=== PATIENT | female | born 1940 | race Caucasian/White ===

== ENCOUNTER → 2016-08-05 | Outpatient (CLI) | payer OTHER ==
--- NOTE | 2016-08-05 15:11 | MA ---
Screening Digital Mammogram With iCAD Analysis Clinical Indications: Routine screening. Technique: Standard cephalocaudal and mediolateral oblique projections were obtained. This examinatio n was processed by the iCAD computer aided detection system. Comparison: July 2015, July 2014, July 2013, July 2012, July 2011, July 2010, Decem 2008. Breast density: Type B; Scattered fibroglandular densities. Findings: CAD was reviewed. No masses, suspicious calcifications or other signs of malignancy are id entified. There has been no significant change in the appearance of either breast. Impression: Negative mammogram. BI-RADS 1. Recommendation: Routine mammographic screening in one year. [facility] will send a result letter to the patient. Negative mammography should not preclude additional workup of a clinically suspicious finding. The patient's information is entered into a reminder system with a target due date for her next mammo gram.
== END ==
LOC: FIMAGING 10:38
DX: Z12.31 Encounter for screening mammogram for malignant neoplasm of breast (principal)
CPT/HCPCS: G0202

== ENCOUNTER → 2017-06-02 | Outpatient (CLI) | payer OTHER | LOC: BMCIMAGING 11:59 | PROVIDERS: ATTEND Internal Medicine Rheumatology | DX: M16.12 Unilateral primary osteoarthritis, left hip (principal); M51.36 Other intervertebral disc degeneration, lumbar region ==

== ENCOUNTER → 2017-07-30 | Outpatient (CLI) | payer OTHER, MEDICARE ==
[~2017-07-30] MED LIST: DEPO METHYLPREDNISOLONE 40 MG/ML SDV ONE; DEPO METHYLPREDNISOLONE 80 MG/ML SDV ONE; IOPAMIDOL (ISOVUE 370) 100 ML BTL IV ONE; LIDOCAINE 1% 300 MG/30 ML SDV ONE; ROPIVACAINE HCL 150 MG/30 ML INJ ONE
== END ==
LOC: FIMAGING 09:20
PROVIDERS: ATTEND Orthopaedic Surgery Sports Medicine
DX: M16.12 Unilateral primary osteoarthritis, left hip (principal)
CPT/HCPCS: 20610; J1040; J2795; Q9967; J1030

== ENCOUNTER → 2017-08-18 | Outpatient (CLI) | payer OTHER, MEDICARE | LOC: FIMAGING 10:36 | PROVIDERS: ATTEND Internal Medicine | DX: Z12.31 Encounter for screening mammogram for malignant neoplasm of breast (principal) ==

== ENCOUNTER → 2017-10-29 | Outpatient (CLI) | payer OTHER, MEDICARE | LOC: BHLMT 14:00 | PROVIDERS: ATTEND Internal Medicine Cardiovascular Disease | DX: I25.10 Atherosclerotic heart disease of native coronary artery without angina pectoris (principal); I10 Essential (primary) hypertension | CPT/HCPCS: 93306-PO ==

== ENCOUNTER → 2017-11-02 | Outpatient (CLI) | payer OTHER, MEDICARE | LOC: BHFA 09:00 | PROVIDERS: ATTEND Internal Medicine Cardiovascular Disease | DX: Z01.810 Encounter for preprocedural cardiovascular examination (principal); I25.10 Atherosclerotic heart disease of native coronary artery without angina pectoris | CPT/HCPCS: 78452; 93017; A9500; J2785 ==

== ENCOUNTER 2017-11-18 06:00 | Inpatient (IN) | payer OTHER, MEDICARE ==
[~2017-11-18 06:00] MED LIST changes: -DEPO METHYLPREDNISOLONE 40 MG/ML SDV ONE; -DEPO METHYLPREDNISOLONE 80 MG/ML SDV ONE; -IOPAMIDOL (ISOVUE 370) 100 ML BTL IV ONE; -LIDOCAINE 1% 300 MG/30 ML SDV ONE; +ROPIVACAINE 0.2% 80 MG, EPINEPHrine 0.2 MG, morphINE 10 MG in SYRINGE 0 ML IU ONE; -ROPIVACAINE HCL 150 MG/30 ML INJ ONE; +TRANEXAMIC ACID 1,000 MG in NS 100 ML IV ONE
[2017-11-18] MEDS ORDERED: FAMOTIDINE 20 MG TAB PO ONE (06:22)
[2017-11-18] MEDS ORDERED: DEXAMETHASONE 4 MG/ML VIAL IVP ONE (06:22)
[2017-11-18] MEDS ORDERED: ceFAZolin 2 GM/SWFI 2 GM/20 ML SYR IVP ONE (06:22)
[2017-11-18] MEDS ORDERED: ACETAMINOPHEN 325 MG TAB PO ONE (06:22)
[2017-11-18] MEDS ORDERED: LIDOCAINE 1% 2 ML INJ ID PRN (06:23)
[2017-11-18] MEDS ORDERED: LR 1,000 ML IV ONE (06:23)
--- NOTE | 2017-11-18 06:58 | PDANEPAE ---
ANE History of Present Illness Hip OA ANE Past Medical History - Cardiovascular History Hx Hypertension: Yes Hx Arrhythmias: No Hx Chest Pain: No Hx Coronary Artery / Peripheral Vascular Disease: Yes Hx CHF / Valvular Disease: No Cardiovascular History Comment: [address] a few years ago - Pulmonary History Hx COPD: Yes Hx Asthma/Reactive Airway Disease: Yes Hx Recent Upper Respiratory Infection: No Hx Oxygen in Use at Home: No Hx Sleep Apnea: Yes Sleep Apnea Screening Result - Last Documented: Positive Pulmonary History Comment: exercise induced asthma - Neurologic History Hx Cerebrovascular Accident: No Hx Seizures: No Hx Dementia: No - Endocrine History Hx Diabetes: No - Renal History Hx Renal Disorders: No - Liver History Hx Hepatic Disorders: No - Neurological & Psychiatric Hx Hx Neurological and Psychiatric Disorders: No Neurological / Psychiatric History Comment: neuropathy - Cancer History Hx Cancer: No - Congenital Disorder History Hx Congenital Disorders: No - GI History Hx Gastrointestinal Disorders: Yes Gastrointestinal History Comment: reflux,hiatel hernia - Other Health History Other Health History: deaf right ear - Chronic Pain History Chronic Pain: Yes (left leg throbes at night) - Surgical History Prior Surgeries: Colonoscopy ANE Review of Systems Review of Systems: - Exercise capacity METS (RN): 4 METS ANE Patient History - Allergies Allergies/Adverse Reactions: naproxen [From Aleve] Allergy (Severe, Verified 10/15/17 11:39) LIPS GO NUMB prochlorperazine edisylate [From Compazine] Allergy (Intermediate, Verified 06/22 11:39) Other-Enter Comments prochlorperazine maleate [From Compazine] Allergy (Intermediate, Verified 11:39) Other-Enter Comments Sulfa (Sulfonamide Antibiotics) Allergy (Intermediate, Verified 10/15/17 11:39) Fever latex Allergy (Mild, Verified 10/15/17 11:39) Itching metronidazole Allergy (Mild, Verified 10/15/17 11:39) Itching - Home Medications Home Medications: Ascorbic Acid [Vitamin C 500 mg (*)] 1,000 mg PO DAILY 10/08/17 [Last Taken 05/23] Aspirin [Aspirin 81mg (*)] 81 mg PO DAILY 10/08/17 [Last Taken 11/11/17] Atorvastatin Calcium [Lipitor 40 mg (*)] 40 mg PO DAILY 10/08/17 [Last Taken ] Calcium Carb W/Vit D [Calcium Carb W/Vit D 500/200 (*)] 500 mg PO DAILY [Last Taken 11/16/17] Cholecalciferol Vit D3 [Vitamin D3 2000 units tab (OTC)] 2,000 units PO DAILY [Last Taken 11/13/17] Cyanocobalamin [Vitamin B12 (*)] 1,000 mcg PO DAILY 10/08/17 [Last Taken ] Ferrous Sulfate [Ferrous Sulf 325 MG (*)] 325 mg PO HS 10/08/17 [Last Taken 03/23] Furosemide [Lasix 20 MG (*)] 20 mg PO DAILY 10/08/17 [Last Taken 11/17/17] Hydrocodone/Acetaminophen [Keene 5/325 (*)] 0.5 - 1 tab PO Q6HRS PRN 10/08/17 [ Last Taken 11/04/17] Ibuprofen [Motrin (*)] 200 mg PO QID PRN 10/08/17 [Last Taken 11/11/17] LORazepam [Ativan (*)] 0.5 mg PO DAILY PRN 10/08/17 [Last Taken 11/15/17] Levothyroxine [Synthroid 50 mcg (*)] 50 mcg PO DAILY06 10/08/17 [Last Taken ] MIRTAZAPINE [Remeron 7.5 mg] 0.5 - 1 tab PO HS PRN 10/08/17 [Last Taken 11/16/17 ] Methocarbamol [Robaxin 500 mg (*)] 500 - 1,000 mg PO Q6HRS PRN 10/08/17 [Last Taken 11/11/17] Nebivolol HCl [Bystolic 5 mg (*)] 10 mg PO DAILY 10/08/17 [Last Taken 11/18/17] Montgomery-3 Fatty Acids [Fish Oil 1000 mg (*)] 1,000 mg PO DAILY 10/08/17 [Last Taken 11/11/17] Pantoprazole Sodium [Protonix] 20 mg PO DAILY 10/08/17 [Last Taken 11/18/17] Spironolactone [Aldactone 25 MG (*)] 25 mg PO DAILY 10/08/17 [Last Taken Unknown ] Terazosin HCl [Hytrin 5 MG (*)] 5 mg PO BID 10/08/17 [Last Taken 11/18/17] Tizanidine HCl [Zanaflex] 4 mg PO Q6-8PRN PRN 10/08/17 [Last Taken 11/04/17] traMADol [Ultram 50 mg (*)] 50 - 100 mg PO TID PRN 10/08/17 [Last Taken 11/17/17 ] - Anes Hx Anes Hx: no prior problems - Smoking Hx Smoking Status: Never smoked - Family Anes Hx Family Hx Anesthesia Complications: NONE ANE Labs/Vital Signs - Vital Signs Height: 160.02 cm Weight: 76.204 kg ANE Physical Exam - Airway Neck exam: FROM Mallampati Score: Class 1 Mouth exam: normal dental/mouth exam - Pulmonary Pulmonary: no respiratory distress - Cardiovascular Cardiovascular: regular rate and rhythym - ASA Status ASA Status: III ANE Anesthesia Plan Anesthesia Plan: general endotracheal anesthesia
[2017-11-18] MEDS ORDERED: MIDAZOLAM 2 MG/2 ML VIAL IVP ONE (07:00)
[2017-11-18] MEDS ORDERED: fentaNYL 100 MCG/2 ML INJ ONE ×2 (07:05→11:06)
[2017-11-18] MEDS ORDERED: PROPOFOL 200 MG/20 ML VIAL ONE (07:05)
[2017-11-18] MEDS ORDERED: ROCURONIUM 50 MG/5 ML VIAL ONE (07:06)
--- NOTE | 2017-11-18 07:09 | PDHPUP ---
History & Physical Update H&P update statement: This history and physical update is based on an assessment of the patient which was completed after admission or registration (within 24 hours), but prior to the surgery/procedure. H&P update: H&P reviewed & patient examined, no change in patient's condition since H&P completed
[2017-11-18] MEDS ORDERED: LIDOCAINE 2% 5 ML SDV ONE (07:10)
[2017-11-18] MEDS ORDERED: ONDANSETRON 4 MG/2 ML VIAL ONE (07:11)
[2017-11-18] MEDS ORDERED: DEXAMETHASONE 4 MG/ML VIAL ONE (07:11)
[2017-11-18] MEDS ORDERED: ceFAZolin 1 GM/5 ML SYR ONE (07:13)
[2017-11-18] MEDS ORDERED: HYDROmorphONE/DILAUDID 2 MG/ML INJ ONE ×2 (08:03→11:06)
[2017-11-18] MEDS ORDERED: HYDROmorphONE/DILAUDID 2 MG/ML INJ IVP PRN (09:02)
[2017-11-18] MEDS ORDERED: fentaNYL 100 MCG/2 ML INJ IVP PRN (09:02)
[2017-11-18] MEDS ORDERED: ONDANSETRON 4 MG/2 ML VIAL IVP PRN ×2 (09:02→10:26)
[2017-11-18] MEDS ORDERED: NALOXONE HCL 0.4 MG/ML INJ IVP PRN (09:02)
[2017-11-18] MEDS ORDERED: PROMETHAZINE HCL 25 MG/ML INJ IVP PRN (10:26)
[2017-11-18] MEDS ORDERED: diphenhydrAMINE 25 MG CAP PO PRN (10:26)
[2017-11-18] MEDS ORDERED: POLYETHYLENE GLYCOL 3350 17 GM PKT PO PRN (10:26)
[2017-11-18] MEDS ORDERED: BISACODYL 10 MG SUPP PR PRN (10:26)
[2017-11-18] MEDS ORDERED: ONDANSETRON DISINTEGRATING 4 MG TAB PO PRN (10:26)
[2017-11-18] MEDS ORDERED: METOCLOPRAMIDE 10 MG/2 ML VIAL IVP PRN (10:26)
[2017-11-18] MEDS ORDERED: DIPHENOXYLATE/ATROPINE LOMOTIL 1 TAB PO PRN (10:26)
[2017-11-18] MEDS ORDERED: LACTULOSE 20 GM/30 ML UDCUP PO PRN (10:26)
[2017-11-18] MEDS ORDERED: MAGNESIUM HYDROXIDE 30 ML UDCUP PO PRN (10:26)
[2017-11-18] MEDS ORDERED: PROMETHAZINE HCL 25 MG SUPPR PR PRN (10:26)
[2017-11-18] MEDS ORDERED: LR 1,000 ML IV SCH (10:30)
--- NOTE | 2017-11-18 10:30 | POSTANESTH ---
Post Anesthetic Evaluation Cardiovascular Status: Normal, Stable Respiratory Status: Normal, Stable Level of Consciousness/Mental Status: Can Participate in Eval Pain Control: Adequate, Prn Tx Ordered Nausea/Vomiting Control: Adequate, Prn Tx Ordered Complications Possibly Related to Anesthesia: None Noted
--- NOTE | 2017-11-18 10:37 | POSTOPPROG ---
Post Op Note Date of Operation: 11/18/17 Surgeon: Ravinder Garza [employer] [place] Worker: Joni Ray PA-C Anesthesia: GET(General Endotracheal) Pre-op Diagnosis: left hip osteoarthritis Post-op Diagnosis: left hip osteoarthritis Procedure: left total hip arthroplasty Findings: see dictated op note Inf/Abcess present in the surg proc area at time of surgery?: No EBL: 100-500 Complications: none
--- NOTE | 2017-11-18 10:39 | GOP ---
[f rep st] OPERATIVE REPORT DATE OF OPERATION: 11/18/2017 SURGEON: Ravinder Garza MD WRAPPER STEMMER HAND: Dorota Ray P.A.-C. ANESTHESIA: General. PREOPERATIVE DIAGNOSIS: Left hip osteoarthritis. POSTOPERATIVE DIAGNOSIS: Left hip osteoarthritis. PROCEDURE PERFORMED: Left total hip arthroplasty, FINDINGS: DESCRIPTION OF PROCEDURE: Patient taken to the operating room, administered general anesthesia, [facility] ed in the right lateral decubitus position. Had her left hip and lower extremity prepped and draped in normal sterile fashion. A posterolateral incision was made through dermal and subcutaneous tissue s. The IT band was split and extended up into the gluteal fascia. The external rotators were taken down along with the piriformis and tagged with #1 Ethibond sutures. The hip was internally rotated a nd subsequently dislocated. The femoral neck cut was made initially 1 cm above the lesser trochanter . This was then shortened down slightly. The anterior retractors were put in position. The acetabu lum was exposed. The labral tissue around the acetabulum was excised. The fatty tissue in the pulvi dylon was excised. Reaming then commenced with a size 44 and extended up to a size 54 in 2 mm incremen ts. Initially the last 2 readings were 1 mm increments. We elected to use a cup with screws. This was then impacted into position. Two superior dome screws were placed. These were 6.5 cancellous sc rews brought through 2 drill holes that were marked appropriately and measured. The screw lengths we re 30 mm in length. Lavage was performed with saline. The trial cup was put in position. The neck was then exposed. Retractors were put in position. A box osteotome was used to remove bone from the greater trochanter. Reaming commenced with a size 5 and extended up to a size 9. The lateralizing reamer was utilized with a size small and then a medium. The implants were trialed. A size 9 stem w as eventually selected. One of the stems was wasted. This was a size 7 as it was inappropriately si zed by the rep. Irrigation performed with normal saline. The canal was thoroughly lavaged. The willie l stem was impacted into position. We trialed a -2.5 neck and then a 0 neck length. We felt the 0 w as appropriate. The hip was relocated with the real implants in place. The intraoperative films kisha wed that the trials were appropriately aligned. The trunnion was dried. The femoral head was impact ed into position. Implants utilized size 9 secure fit Doris stem size 54 cup with a 54 insert. Tr itanium hemispherical cluster hole shell, size 54, Alpha E cup trident 0 degree polyethylene insert, torques 6.5 cancellous screws, 6.5 mm diameter, 30 mm in length x2, 132 degree neck angle hip stem, s ecure fit [place] L fit anatomic C taper femoral head size 36+ 0 offset. After implantation of the r eal implants, the incision was thoroughly lavaged. A cocktail was placed deeply and in the subcutane ous tissues. The external rotators were then brought back down into drill holes in the greater troch anter. The hip capsule was repaired in likewise fashion posteriorly. The IT band was reapproximated with a figure-eight #1 Vicryl sutures. The gluteal fascia was closed with a [id number] #1 Vicr yl suture. Subcutaneous tissues were closed with 2-0 Vicryl suture. The dermis was closed with stap les. Sterile compression dressing applied. The patient had an abduction pillow placed and SUNITHA hose. She tolerated the procedure well, was transferred back to recovery in stable condition. COMPLICATIONS: None. /[id number]/MODL
[2017-11-18] MEDS ORDERED: MIRTAZAPINE PO PRN (10:40)
[2017-11-18] MEDS ORDERED: MIRTAZAPINE 15 MG TAB PO PRN (11:12)
--- NOTE | 2017-11-18 12:29 | PDMN ---
Medical Necessity Medical necessity: [facility] IP only surgery; cpt 86689 L TERESA
[2017-11-18] MEDS: ACETAMINOPHEN 325 MG TAB PO SCH ×2 (12:32→17:40)
[2017-11-18] MEDS ORDERED: LORazepam 0.5 MG TAB PO PRN (13:05)
[2017-11-18] MEDS: ceFAZolin 2 GM/DEXTROSE 100 ML IV SCH ×2 (14:26→20:38)
[2017-11-18] MEDS ORDERED: WARFARIN SODIUM 5 MG TAB PO SCH (16:00)
--- NOTE | 2017-11-18 16:21 | GCON ---
[f rep st] CONSULTATION INTERNAL MEDICINE CONSULTATION. DATE OF CONSULTATION: 11/18/2017 REASON FOR CONSULTATION: Medical opinion regarding perioperative management of hypertension, coronar y artery disease, and other multiple medical problems. HISTORY: The patient is a 77-year-old female who had a total hip arthroplasty done electively brenda patel by Dr. Garza. She is doing very well postoperatively, without any complaints. Preoperatively , she saw both Dr. Artem Carter and Dr. Fer Walker for preoperative clearance of her heart and lungs. Dr. Walker increased her Bystolic just a couple days ago and changed her Lipitor to Crestor. He also performed an outpatient stress test and an echocardiogram preoperatively, which presumably looked go od and cleared her to proceed. She has had no recent illnesses. PAST MEDICAL HISTORY: 1. Hypertension. 2. Coronary artery disease, status post stents 5 years ago. 3. Asthma. 4. Obstructive sleep apnea, CPAP intolerant. 5. Gastroesophageal reflux disease, with a very large hiatal hernia, for which she has declined surg stephan. 6. Neuropathy. 7. Scoliosis and previous compression fracture. 8. Osteoporosis, undergoing active treatment with Dr. Dave. 9. Hypothyroidism. 10. Hyperlipidemia. MEDICATIONS: Please see computerized record for full detailed list. ALLERGIES: Sulfa, Flagyl, and naproxen. SOCIAL HISTORY: No smoking or alcohol. [facility] has 18 stairs . She is hopeful to go to rehab after this procedure. REVIEW OF SYSTEMS: Complete review of systems obtained. Review of systems negative for constitution al, HEENT, GI, pulmonary, cardiovascular, , hematology, skin, muscular, endocrine, psych, except fo r positives and negatives as noted in HPI. FAMILY HISTORY: Reviewed and noncontributory to presenting complaint. PHYSICAL EXAMINATION: GENERAL: Well-developed, well-nourished female, in no acute distress. VITAL SIGNS: Temperature 37.2, pulse 84, blood pressure 100/60, saturating 95% on room air. HEENT: Renée l conjunctivae. Pupils reactive to light. ENT: Normal ears and nose. Hearing intact. Normal lips and teeth. Oropharynx moist. NECK: Trachea midline. No thyromegaly. CHEST: Normal respiratory effort. Lungs clear to auscultation bilaterally. CARDIOVASCULAR: Regular rate and rhythm. No murmu r. No lower extremity edema. ABDOMEN: Soft, nontender. No hepatosplenomegaly. SKIN: Warm, dry, intact. No rash. MUSCULOSKELETAL: No cyanosis or clubbing. Strength 5/5, upper and lower extremit ies. NEUROLOGIC: Cranial nerves intact. Normal sensation to light touch. PSYCH: Alert and orient ed x3. Normal affect. Normal judgment and insight. Normal memory. LABORATORY DATA: The patient is ordered for CBC and chem-7 tomorrow morning, as well as an INR, whic h will be followed daily as she is initiating warfarin. Old chart review: I reviewed Dr. Garza's records, including his outpatient H and P preoperative and the operative report. The patient does not have any previous hospitalizations beyond that here at [facility]. This case was discussed with MANDY Jerry for Dr. Garza, regarding need for inpatient consult ation. ASSESSMENT/PLAN: 1. Total hip arthroplasty. She is doing very well postoperatively. Per Dr. Garza, warfarin will be used for deep vein thrombosis prophylaxis. Will follow INR daily. 2. Coronary artery disease, status post stents. Pre-surgery, she had stress test, echo and cardiac clearance with Dr. Walker. I anticipate she will do well from this standpoint. Her Bystolic was recen tly increased. We will follow her blood pressure and pulse closely. Her Lipitor was changed recentl y to Crestor, and her med rec has not yet been updated. This could be clarified during this hospital ization. Her aspirin is currently being held but will clarify with Dr. Garza at what point that can be re-initiated. 3. Obstructive sleep apnea, CPAP intolerant. She is on Lasix and spironolactone at home, and so she does seem to have a tendency towards edema. Her volume status will be watched closely. Could reque st records from Dr. Walker's office regarding findings of recent echocardiogram. She may have some und erlying congestive heart failure or pulmonary hypertension. 4. Gastroesophageal reflux disease, with a large hiatal hernia. She was a candidate for surgery but declined as it does not bother her that badly. Will continue her Protonix perioperatively. Thank you very much for this consultation. Internal Medicine will continue to follow along while she remains hospitalized. /[id number]/MODL
[2017-11-18] MEDS: oxyCODONE IR 5 MG TAB PO PRN ×2 (16:59→22:38)
[2017-11-18] MEDS: SENNOSIDES/DOCUSATE SODIUM TAB PO SCH (20:38)
[2017-11-18] MEDS: FERROUS SULFATE 325 MG TAB PO SCH (20:38)
[2017-11-18] MEDS: TERAZOSIN HCL 5 MG CAP PO SCH (20:38)
[2017-11-18] MEDS ORDERED: FAMOTIDINE 20 MG TAB PO SCH (21:00)
[2017-11-18] MEDS: CYCLOBENZAPRINE 10 MG TAB PO PRN (22:38)
[2017-11-19] MEDS: ACETAMINOPHEN 325 MG TAB PO SCH ×5 (01:00→23:52)
[2017-11-19] MEDS: oxyCODONE IR 5 MG TAB PO PRN ×3 (05:00→17:36)
[2017-11-19] MEDS: LEVOTHYROXINE 50 MCG TAB PO SCH (05:01)
[2017-11-19 05:51] LABS: INR 2.18 (0.83-1.16); PROTIME(PATIENT) 24.3 SEC (12.0-15.0)
[2017-11-19] MEDS ORDERED: NON-FORMULARY NEW DRUG (Pantoprazole Sodium [Protonix] 20 MG) PO SCH (09:00)
[2017-11-19] MEDS: ASCORBIC ACID 500 MG TAB PO SCH (09:02)
[2017-11-19] MEDS: ATORVASTATIN CALCIUM 40 MG TAB PO SCH (09:03)
[2017-11-19] MEDS: NEBIVOLOL HCL 5 MG TAB PO SCH (09:03)
[2017-11-19] MEDS: CALCIUM CARB W/VIT D 500 MG TAB PO SCH (09:03)
[2017-11-19] MEDS: TERAZOSIN HCL 5 MG CAP PO SCH ×2 (09:03→21:25)
[2017-11-19] MEDS: PANTOPRAZOLE SODIUM 40 MG TAB PO SCH (09:03)
[2017-11-19] MEDS: CHOLECALCIFEROL VIT D3 2,000 UNITS TAB/CAP PO SCH (09:03)
[2017-11-19] MEDS: CYANO/VITAMIN B12 1000 MCG TAB PO SCH (09:04)
[2017-11-19] MEDS: SPIRONOLACTONE 25 MG TAB PO SCH (09:04)
[2017-11-19] MEDS: SENNOSIDES/DOCUSATE SODIUM TAB PO SCH ×2 (09:04→21:25)
[2017-11-19] MEDS: FUROSEMIDE 20 MG TAB PO SCH (09:04)
--- NOTE | 2017-11-19 10:23 | ASMTCMCOM ---
CM Note CM Note Notes: Pt is POD #2, s/p TERESA. She normally lives at home alone independantly. PT recommending SNF, pt in agreement. She woul like to go to [facility]. Referral sent to [facility]. CM will follow. Date Signed: 11/19/2017 10:22 AM Electronically Signed By:Rocio Simpson RN
--- NOTE | 2017-11-19 10:26 | SOAPPROG ---
SOAP Progress Note Assessment/Plan: Assessment: POD #1 Left hip TERESA: doing well; pain well controlled. Still draining heavily today. Elevated INR. Plan: WBAT. Up with PT/OT. Dressing: maintain dry dressing. Drain: maintain drain at this time. DVT prophylaxis: continue chemoprophylaxis (warfarin) per hospitalist reccs ( appreciate their reccs), SUNITHA pradhan, SCDs, IS. F/U with our office at 2 weeks post-op. Please schedule appt with our office at [phone] upon D/C. Advised her to watch for fever, chills, abnormal numbness, tingling, cough, congestion, chest pain, SOB, dyspnea, change in heat/color of extremity or around wound site, abnormal bleeding/oozing/discharge, claudication and to seek immediate medical attn if seen. Patient discussed with Dr. Garza. Subjective: Sitting up in bed; friend in room. Has passed flatus, no BM. Denies fever, chills, abnormal numbness, tingling, cough, congestion, chest pain, SOB, dyspnea , change in heat/color of extremity or around wound site, abnormal bleeding/ oozing/discharge, claudication. Has been attempting to ambulate with PT. Drain in place. Objective: Vital Signs Temp Pulse Resp BP Pulse Ox 37.3 C 99 18 132/89 H 95 11/19/17 07:48 11/19/17 09:03 11/19/17 07:48 11/19/17 09:03 11/19/17 07:48 Laboratory Results 11/19/17 05:14 11/19/17 05:14 11/18/17 11/19/17 11/20/17 05:59 05:59 05:59 Intake Total 2900 Output Total 1390 Balance 1510 PT 24.3 SEC (12.0-15.0) H 11/19/17 05:14 INR 2.18 (0.83-1.16) H 11/19/17 05:14 A/O. NAD. Non-labored breathing. No diaphoresis. RRR. Abdomen soft, non- distended. Sitting up in chair. Able to respond appropriately to command/ question. MS: Left hip bandaged with no abnormal bleeding/oozing/discharge, change in heat /color around wound sites or of extremity. Drain still in place; draining a large amount of output. Mildly TTP over incision sites. Limited AROM of left hip secondary to pain but FROM distally with 5/5 strength distally and no focal deficits. Gross sensation intact & NVI b/l in lower extremities with no focal deficits. Calves soft/supple and NTTP b/l with negative b/l Homans. SUNITHA hose in place b/l. X-rays: 1 AP view of left hip show well aligned total hip arthroplasty in good position/alignment with no fracture, malalignment or deformity noted. - Pending Discharge Pending Discharge Within 24 Hours: No ICD10 Worksheet Patient Problems: Problems Problem Status Onset Angina, class III Acute CAD (coronary artery disease) Acute COPD (chronic obstructive pulmonary disease) Acute Dyspnea Acute Hyperlipemia Acute Hypertension Acute JANE (obstructive sleep apnea) Acute Pulmonary arterial hypertension Acute Stented coronary artery Acute
--- NOTE | 2017-11-19 13:15 | HOSPPROG ---
Hospitalist Progress Note Assessment/Plan: 77y female with hip pain. First encounter, chart reviewed. #POD#1 TERESA -stable -per Dr Garza #CAD -stable -no pain #ABLA -stable -JUANI -follow, recheck in am -may need transfusion #JANE -diuresis if needed -appears stable -watch closely #GERD -stable #DVT proph -coumadin per ortho #Pain -stable with PO meds #Dispo -to SNF when able -cont to follow -watch labs -PT/OT Subjective: Up in the chair. Some discomfort. No specific issues. Objective: Vital Signs Temp Pulse Resp BP Pulse Ox 37.1 C 101 H 16 108/59 L 95 11/19/17 11:16 11/19/17 11:16 11/19/17 11:16 11/19/17 11:16 11/19/17 11:16 Laboratory Results 11/19/17 05:14 11/19/17 05:14 11/18/17 11/19/17 11/20/17 05:59 05:59 05:59 Intake Total 2900 Output Total 1390 50 Balance 1510 -50 PT 24.3 SEC (12.0-15.0) H 11/19/17 05:14 INR 2.18 (0.83-1.16) H 11/19/17 05:14 - Physical Exam Constitutional: appears nourished, not in pain, No cachectic Eyes: PERRL, anicteric sclera, EOMI Ears, Nose, Mouth, Throat: moist mucous membranes, hearing normal, ears appear normal Cardiovascular: No JVD, No tachycardia, No edema Respiratory: no respiratory distress, no rales or rhonchi, reduced air movement Gastrointestinal: normoactive bowel sounds, No tenderness, No ascites Skin: warm, normal color, No erythema Musculoskeletal: joint tenderness, pain with ROM, muscular tenderness, generalized weakness Neurologic: AAOx3 Psychiatric: interacting appropriately, not anxious, not encephalopathic, thought process linear ICD10 Worksheet Patient Problems: Problems Problem Status Onset Angina, class III Acute CAD (coronary artery disease) Acute Stented coronary artery Acute Dyspnea Acute Pulmonary arterial hypertension Acute Hypertension Acute Hyperlipemia Acute JANE (obstructive sleep apnea) Acute COPD (chronic obstructive pulmonary disease) Acute
[2017-11-19] MEDS: FERROUS SULFATE 325 MG TAB PO SCH (21:25)
[2017-11-19] MEDS: CYCLOBENZAPRINE 10 MG TAB PO PRN (23:52)
[2017-11-20] MEDS: LEVOTHYROXINE 50 MCG TAB PO SCH (05:18)
[2017-11-20] MEDS: ACETAMINOPHEN 325 MG TAB PO SCH ×3 (05:18→17:57)
[2017-11-20] MEDS: oxyCODONE IR 5 MG TAB PO PRN ×3 (05:22→17:58)
[2017-11-20 05:46] LABS: INR 2.76 (0.83-1.16); PROTIME(PATIENT) 29.1 SEC (12.0-15.0)
--- NOTE | 2017-11-20 07:10 | SOAPPROG ---
SOAP Progress Note Assessment/Plan: Assessment: POD#2 left total hip arthroplasty Plan: WBAT RLE with assistive device PT/OT Dressing: nurse can please change dressing today Drain: is out DVT prophylaxis: continue chemoprophylaxis (warfarin) per hospitalist Yumiko Zapien Pain medicine prn F/U with our office at 2 weeks post-op. Ortho stable. Pt will be going to a rehab center. Subjective: Patient is POD#2 from a left total hip arthroplasty. Patient states shes does have pain and stiffness in her hip but it is controlled with pain medicine. She has been up with PT. Objective: Vital Signs Temp Pulse Resp BP Pulse Ox 37.3 C 91 16 103/57 L 93 / 23:02 11/19/17 23:02 11/19/17 23:02 11/19/17 23:02 11/19/17 23:02 Laboratory Results 11/20/17 04:51 11/19/17 05:14 11/19/17 11/20/17 11/21/17 05:59 05:59 05:59 Intake Total 2900 1100 Output Total 1390 2490 Balance 1510 -1390 PT 29.1 SEC (12.0-15.0) H 11/20/17 04:51 INR 2.76 (0.83-1.16) H 11/20/17 04:51 Physical exam of the left hip: dressing clean, dry and intact. No erythema no active drainage. Normal sensation to light touch in the LLE. Calf is soft and non tender. Distal pulse present in the LLE. ICD10 Worksheet Patient Problems: Problems Problem Status Onset Angina, class III Acute CAD (coronary artery disease) Acute COPD (chronic obstructive pulmonary disease) Acute Dyspnea Acute Hyperlipemia Acute Hypertension Acute JANE (obstructive sleep apnea) Acute Pulmonary arterial hypertension Acute Stented coronary artery Acute
[2017-11-20] MEDS: CHOLECALCIFEROL VIT D3 2,000 UNITS TAB/CAP PO SCH (08:42)
[2017-11-20] MEDS: TERAZOSIN HCL 5 MG CAP PO SCH ×2 (08:42→22:39)
[2017-11-20] MEDS: CYANO/VITAMIN B12 1000 MCG TAB PO SCH (08:42)
[2017-11-20] MEDS: SENNOSIDES/DOCUSATE SODIUM TAB PO SCH ×2 (08:43→22:39)
[2017-11-20] MEDS: NEBIVOLOL HCL 5 MG TAB PO SCH (08:44)
[2017-11-20] MEDS: ATORVASTATIN CALCIUM 40 MG TAB PO SCH (08:44)
[2017-11-20] MEDS: CALCIUM CARB W/VIT D 500 MG TAB PO SCH (08:44)
[2017-11-20] MEDS: SPIRONOLACTONE 25 MG TAB PO SCH (08:45)
[2017-11-20] MEDS: FUROSEMIDE 20 MG TAB PO SCH (08:45)
[2017-11-20] MEDS: ASCORBIC ACID 500 MG TAB PO SCH (08:45)
[2017-11-20] MEDS: PANTOPRAZOLE SODIUM 40 MG TAB PO SCH (08:55)
[2017-11-20] MEDS: CYCLOBENZAPRINE 10 MG TAB PO PRN (08:55)
--- NOTE | 2017-11-20 12:34 | HOSPPROG ---
Hospitalist Progress Note Assessment/Plan: 77y female with hip pain. #POD#2 TERESA -stable -per Dr Garza #CAD -stable -no pain # hypotension -will reduce patient's Bystolic from 10 daily down to 5 mg -patient's program counselor Dr. Walker -continue to follow #ABLA -lower today -pt currently refusing blood -will recheck a H&H at 2000, patient will decide if transfusion is appropriate -JUANI fell out -follow, recheck in am -discussed with patient, wants to hold off on blood at this time -will also check iron level #JANE -diuresis if needed -appears stable -watch closely #GERD -stable #DVT proph -coumadin per ortho -hold Coumadin -patient's INR 2.76 -hemoglobin hematocrit continue to drop -patient currently refusing blood #Pain -stable with PO meds #Dispo -to SNF when able -cont to follow -watch labs -PT/OT Subjective: Up in chair. Feels well. Had bowel movement. Anxious about accepting blood. Wants to hold off until later this evening if possible. Objective: Vital Signs Temp Pulse Resp BP Pulse Ox 36.6 C 87 16 93/82 H 100 11/20/17 08:16 11/20/17 08:16 11/20/17 08:16 11/20/17 08:16 11/20/17 08:16 Laboratory Results 11/20/17 04:51 11/19/17 05:14 11/19/17 11/20/17 11/21/17 05:59 05:59 05:59 Intake Total 2900 1100 200 Output Total 1390 2490 150 Balance 1510 -1390 50 PT 29.1 SEC (12.0-15.0) H 11/20/17 04:51 INR 2.76 (0.83-1.16) H 11/20/17 04:51 - Physical Exam Constitutional: appears nourished, not in pain, chronically ill appearing Eyes: PERRL, anicteric sclera, EOMI Ears, Nose, Mouth, Throat: moist mucous membranes, hearing normal, ears appear normal Cardiovascular: No JVD, No tachycardia, No edema Respiratory: no respiratory distress, no rales or rhonchi, reduced air movement Gastrointestinal: normoactive bowel sounds, No tenderness, No ascites Skin: warm, normal color, No mottled Musculoskeletal: joint tenderness, pain with ROM, generalized weakness Neurologic: AAOx3 Psychiatric: interacting appropriately, not anxious, not encephalopathic, thought process linear ICD10 Worksheet Patient Problems: Problems Problem Status Onset Angina, class III Acute CAD (coronary artery disease) Acute Stented coronary artery Acute Dyspnea Acute Pulmonary arterial hypertension Acute Hypertension Acute Hyperlipemia Acute JANE (obstructive sleep apnea) Acute COPD (chronic obstructive pulmonary disease) Acute
--- NOTE | 2017-11-20 13:37 | ASMTCMCOM ---
CM Note CM Note Notes: Pt accepted at [facility] and plan remains d/c to [facility] when medically stable. Date Signed: 11/20/2017 01:36 PM Electronically Signed By:JASON Palacios
[2017-11-20] MEDS: FERROUS SULFATE 325 MG TAB PO SCH (22:38)
[2017-11-21] MEDS: ACETAMINOPHEN 325 MG TAB PO SCH ×5 (01:07→23:47)
[2017-11-21] MEDS: CYCLOBENZAPRINE 10 MG TAB PO PRN ×2 (02:07→23:47)
[2017-11-21 05:31] LABS: INR 2.11 (0.83-1.16); PROTIME(PATIENT) 23.7 SEC (12.0-15.0)
[2017-11-21] MEDS: LEVOTHYROXINE 50 MCG TAB PO SCH (06:10)
[2017-11-21] MEDS: ASCORBIC ACID 500 MG TAB PO SCH (09:32)
[2017-11-21] MEDS: CYANO/VITAMIN B12 1000 MCG TAB PO SCH (09:32)
[2017-11-21] MEDS: CHOLECALCIFEROL VIT D3 2,000 UNITS TAB/CAP PO SCH (09:32)
[2017-11-21] MEDS: CALCIUM CARB W/VIT D 500 MG TAB PO SCH (09:32)
[2017-11-21] MEDS: PANTOPRAZOLE SODIUM 40 MG TAB PO SCH (09:32)
[2017-11-21] MEDS: ATORVASTATIN CALCIUM 40 MG TAB PO SCH (09:33)
[2017-11-21] MEDS: FERROUS SULFATE 140 MG TAB.ER PO SCH (09:33)
[2017-11-21] MEDS: SPIRONOLACTONE 25 MG TAB PO SCH (09:34)
[2017-11-21] MEDS: FUROSEMIDE 20 MG TAB PO SCH (09:34)
[2017-11-21] MEDS: NEBIVOLOL HCL 5 MG TAB PO SCH (09:34)
[2017-11-21] MEDS: TERAZOSIN HCL 5 MG CAP PO SCH ×2 (09:35→21:22)
[2017-11-21] MEDS: SENNOSIDES/DOCUSATE SODIUM TAB PO SCH ×2 (09:35→21:22)
[2017-11-21] MEDS: oxyCODONE IR 5 MG TAB PO PRN ×2 (10:42→16:57)
--- NOTE | 2017-11-21 11:24 | HOSPPROG ---
Hospitalist Progress Note Assessment/Plan: Monica is a 77 y/o female She had an elective hip arthroplasty done. Today is my first encounter with the patient, chart reviewed. *Hip pain s/p hip arthroplasty * CAD -stents -asa *anemia/ABLA -received one unit of prbc's *hypotension resolved *JANE *GERD -large hiatal hernia -PPI *DVT prophylaxis -warfarin, INR is 2.11 *Plan: likely ready for dc in next day or so per orthopedics. Patient was concerned about more swelling than her baseline in her lower ext. Her diuretics are resumed. Will further evaluate tomorrow. Subjective: Monica said she is having pain at the left hip area. Objective: Vital Signs Temp Pulse Resp BP Pulse Ox 36.9 C 108 H 14 123/68 H 96 11/21/17 07:35 11/21/17 07:35 11/21/17 07:35 11/21/17 07:35 11/21/17 07:35 Laboratory Results 11/21/17 05:06 11/19/17 05:14 11/20/17 11/21/17 11/22/17 05:59 05:59 05:59 Intake Total 1100 1100 500 Output Total 2490 750 Balance -1390 350 500 PT 23.7 SEC (12.0-15.0) H 11/21/17 05:06 INR 2.11 (0.83-1.16) H 11/21/17 05:06 - Physical Exam Constitutional: uncomfortable, No not in pain (hip) Ears, Nose, Mouth, Throat: hearing normal Cardiovascular: regular rate and rhythym Respiratory: no respiratory distress Skin: other (swelling in left hip and in upper thigh area) Musculoskeletal: muscular tenderness Neurologic: AAOx3 Psychiatric: interacting appropriately ICD10 Worksheet Patient Problems: Problems Problem Status Onset Angina, class III Acute CAD (coronary artery disease) Acute COPD (chronic obstructive pulmonary disease) Acute Dyspnea Acute Hyperlipemia Acute Hypertension Acute JANE (obstructive sleep apnea) Acute Pulmonary arterial hypertension Acute Stented coronary artery Acute
--- NOTE | 2017-11-21 15:34 | SOAPPROG ---
SOAP Progress Note Assessment/Plan: Assessment: SOAP Progress Note Assessment/Plan: Assessment: POD#3 left total hip arthroplasty Plan: WBAT RLE with assistive device PT/OT Drain: is out DVT prophylaxis: continue chemoprophylaxis (warfarin) per hospitalist recYumiko Grover Pain medicine prn F/U with our office at 2 weeks post-op. Pt. should call to schedule post-op appointment with [facility] at [phone]. Ortho stable to dc to rehab facility. Pt will be going to a rehab center when cleared by hospitalist service. Subjective: Patient is POD#3 from a left total hip arthroplasty. Patient states shes does have pain and stiffness in her hip but it is controlled with pain medicine. She has been up with PT. No fevers, SOB, NGUYEN, CP, complains of feet swelling, but this is improving since her diuretic was re-started today. Objective: Pt. awake, resting comfortably in bed with abductor pillow. She answers questions appropriately. Dressing is clean and dry at the left hip. No drainage present. She is NVI distally with brisk pedal pulses bilaterally, cap.refill is brisk and skin is warm and dry. Calves are soft and supple, no tenderness. SUNITHA hose in place. 11/21/17 15:30 Objective: Vital Signs Temp Pulse Resp BP Pulse Ox 36.9 C 108 H 14 123/68 H 96 11/21/17 07:35 11/21/17 07:35 11/21/17 07:35 11/21/17 07:35 11/21/17 07:35 Laboratory Results 11/21/17 05:06 11/19/17 05:14 11/20/17 11/21/17 11/22/17 05:59 05:59 05:59 Intake Total 1100 1100 500 Output Total 2490 750 Balance -1390 350 500 PT 23.7 SEC (12.0-15.0) H 11/21/17 05:06 INR 2.11 (0.83-1.16) H 11/21/17 05:06 ICD10 Worksheet Patient Problems: Problems Problem Status Onset Angina, class III Acute CAD (coronary artery disease) Acute COPD (chronic obstructive pulmonary disease) Acute Dyspnea Acute Hyperlipemia Acute Hypertension Acute JANE (obstructive sleep apnea) Acute Pulmonary arterial hypertension Acute Stented coronary artery Acute
[2017-11-21] MEDS: FERROUS SULFATE 325 MG TAB PO SCH (21:22)
[2017-11-22] MEDS: oxyCODONE IR 5 MG TAB PO PRN ×3 (01:21→15:14)
[2017-11-22 05:42] LABS: INR 2.01 (0.83-1.16); PROTIME(PATIENT) 22.8 SEC (12.0-15.0)
[2017-11-22] MEDS: LEVOTHYROXINE 50 MCG TAB PO SCH (05:54)
[2017-11-22] MEDS: ACETAMINOPHEN 325 MG TAB PO SCH ×2 (05:54→11:41)
[2017-11-22] MEDS: ASCORBIC ACID 500 MG TAB PO SCH (08:40)
[2017-11-22] MEDS: CYANO/VITAMIN B12 1000 MCG TAB PO SCH (08:40)
[2017-11-22] MEDS: TERAZOSIN HCL 5 MG CAP PO SCH (08:40)
[2017-11-22] MEDS: NEBIVOLOL HCL 5 MG TAB PO SCH (08:41)
[2017-11-22] MEDS: CALCIUM CARB W/VIT D 500 MG TAB PO SCH (08:41)
[2017-11-22] MEDS: FUROSEMIDE 20 MG TAB PO SCH (08:41)
[2017-11-22] MEDS: ATORVASTATIN CALCIUM 40 MG TAB PO SCH (08:44)
[2017-11-22] MEDS: SPIRONOLACTONE 25 MG TAB PO SCH (08:44)
[2017-11-22] MEDS: FERROUS SULFATE 140 MG TAB.ER PO SCH (08:44)
[2017-11-22] MEDS: PANTOPRAZOLE SODIUM 40 MG TAB PO SCH (08:44)
[2017-11-22] MEDS: SENNOSIDES/DOCUSATE SODIUM TAB PO SCH (08:44)
[2017-11-22] MEDS: CHOLECALCIFEROL VIT D3 2,000 UNITS TAB/CAP PO SCH (08:45)
[2017-11-22 08:47] VITALS: BP 112/50
[2017-11-22] MEDS: CYCLOBENZAPRINE 10 MG TAB PO PRN (11:42)
--- NOTE | 2017-11-22 13:47 | HOSPPROG ---
Hospitalist Progress Note Assessment/Plan: Monica is a 77 y/o female She had an elective hip arthroplasty done. *Hip pain s/p hip arthroplasty * CAD -stents -asa to be restarted per ortho *anemia/ABLA -received one unit of prbc's *hypotension resolved *JANE *GERD -large hiatal hernia -PPI *DVT prophylaxis -warfarin, INR is 2.o -Monica's INR went up very quickly w one dose of Coumadin, could consider Lovenox *Plan: dc per ortho Subjective: Monica is feeling well today. Objective: Vital Signs Temp Pulse Resp BP Pulse Ox 37.1 C 90 17 112/50 L 94 11/22/17 07:31 11/22/17 08:41 11/22/17 07:31 11/22/17 08:41 11/22/17 07:31 Laboratory Results 11/22/17 04:43 11/19/17 05:14 11/21/17 11/22/17 11/23/17 05:59 05:59 05:59 Intake Total 1100 500 Output Total 750 Balance 350 500 PT 22.8 SEC (12.0-15.0) H 11/22/17 04:43 INR 2.01 (0.83-1.16) H 11/22/17 04:43 - Physical Exam Constitutional: appears nourished Eyes: PERRL Ears, Nose, Mouth, Throat: hearing normal Respiratory: no respiratory distress Skin: warm, other (swelling at left hip area), No normal color (pale) Neurologic: AAOx3 Psychiatric: interacting appropriately ICD10 Worksheet Patient Problems: Problems Problem Status Onset Angina, class III Acute CAD (coronary artery disease) Acute COPD (chronic obstructive pulmonary disease) Acute Dyspnea Acute Hyperlipemia Acute Hypertension Acute JANE (obstructive sleep apnea) Acute Pulmonary arterial hypertension Acute Stented coronary artery Acute
--- NOTE | 2017-11-22 14:01 | PDIAF ---
- Diagnosis Code Status: Full Code - Medication Management Discharge Medications: Medications to Continue on Transfer Ascorbic Acid [Vitamin C 500 mg (*)] 1,000 mg PO DAILY 10/08/17 [Last Taken 05/23] Aspirin [Aspirin 81mg (*)] 81 mg PO DAILY 10/08/17 [Last Taken 11/11/17] Atorvastatin Calcium [Lipitor 40 mg (*)] 40 mg PO DAILY 10/08/17 [Last Taken ] Calcium Carb W/Vit D [Calcium Carb W/Vit D 500/200 (*)] 500 mg PO DAILY [Last Taken 11/16/17] Cholecalciferol Vit D3 [Vitamin D3 2000 units tab (OTC)] 2,000 units PO DAILY [Last Taken 11/13/17] Cyanocobalamin [Vitamin B12 (*)] 1,000 mcg PO DAILY 10/08/17 [Last Taken ] Ferrous Sulfate [Ferrous Sulf 325 MG (*)] 325 mg PO HS 10/08/17 [Last Taken 03/23] Furosemide [Lasix 20 MG (*)] 20 mg PO DAILY 10/08/17 [Last Taken 11/17/17] Hydrocodone/Acetaminophen [[place]ck 5/325 (*)] 0.5 - 1 tab PO Q6HRS PRN 10/08/17 [ Last Taken 11/04/17] Ibuprofen [Motrin (*)] 200 mg PO QID PRN 10/08/17 [Last Taken 11/11/17] LORazepam [Ativan (*)] 0.5 mg PO DAILY PRN 10/08/17 [Last Taken 11/15/17] Levothyroxine [Synthroid 50 mcg (*)] 50 mcg PO DAILY06 10/08/17 [Last Taken ] MIRTAZAPINE [Remeron 7.5 mg] 0.5 - 1 tab PO HS PRN 10/08/17 [Last Taken 11/16/17 ] Methocarbamol [Robaxin 500 mg (*)] 500 - 1,000 mg PO Q6HRS PRN 10/08/17 [Last Taken 11/11/17] Nebivolol HCl [Bystolic 5 mg (*)] 10 mg PO DAILY 10/08/17 [Last Taken 11/18/17] Norman-3 Fatty Acids [Fish Oil 1000 mg (*)] 1,000 mg PO DAILY 10/08/17 [Last Taken 11/11/17] Pantoprazole Sodium [Protonix] 20 mg PO DAILY 10/08/17 [Last Taken 11/18/17] Spironolactone [Aldactone 25 MG (*)] 25 mg PO DAILY 10/08/17 [Last Taken Unknown ] Terazosin HCl [Hytrin 5 MG (*)] 5 mg PO BID 10/08/17 [Last Taken 11/18/17] Tizanidine HCl [Zanaflex] 4 mg PO Q6-8PRN PRN 10/08/17 [Last Taken 11/04/17] traMADol [Ultram 50 mg (*)] 50 - 100 mg PO TID PRN 10/08/17 [Last Taken 11/17/17 ] Discharge Medications: Refer to the Discharge Home Medication list for PRN reason. PICC Care - Routine: N/A - Orders Isolation Type: None Diet Recommendation: no restrictions on diet Diet Texture: Regular Texture Diet Rolle: Not applicable Wound Care Instructions: Please change dressing daily as needed and then every other day once able to, depending on drainage. Activity/Weight Bearing Restrictions: Weight bearing as tolerated. Additional Instructions: Orthopedics: Weight bearing as tolerated left lower extremity Physical therapy: range of motion and strengthening Abduction pillow while in bed Pain medicine as needed Dressing change daily until dry, then every other day. DVT prophylaxis: warfarin daily for 4 weeks post op, 2.5 mg. SUNITHA hose wear for 2 weeks post op PT/INR blood draws every Thursday and Follow up with Dr. Garza in 2 weeks post op Please call the office with any questions or [phone] - Labs/Radiology PT/INR Date: 11/23/17 (every Thursday and ) - Follow Up Care Current Providers and Referrals: Angy Almaraz MD [Primary Care Provider] - Ravinder Garza MD [Medical Doctor] - follow up in 2 weeks (Follow up in 2 weeks post op)
--- NOTE | 2017-11-22 14:07 | SOAPPROG ---
SOAP Progress Note Assessment/Plan: Assessment: SOAP Progress Note Assessment/Plan: Assessment: POD#3 left total hip arthroplasty Plan:Discharge to [facility] today. WBAT LLE with assistive device PT/OT Drain: is out DVT prophylaxis: continue chemoprophylaxis (warfarin), 1.0 mg daily with INR checked every other day please. Discussed with [facility] Pharmacist. SUNITHA pradhan, Yumiko Pain medicine prn F/U with our office at 2 weeks post-op. Pt. should call to schedule post-op appointment with [facility] at [phone]. Ortho stable to dc to rehab facility. Pt will be going to a rehab center when cleared by hospitalist service. Subjective: Patient is POD#3 from a left total hip arthroplasty. Patient states shes does have pain and stiffness in her hip but it is controlled with pain medicine. She has been up with PT. No fevers, SOB, NGUYEN, CP, complains of feet swelling, but this is improving since her diuretic was re-started today. Objective: Pt. awake, resting comfortably in bed with abductor pillow. She answers questions appropriately. Dressing is clean and dry at the left hip. No drainage present. She is NVI distally with brisk pedal pulses bilaterally, cap.refill is brisk and skin is warm and dry. Calves are soft and supple, no tenderness. SUNITHA hose in place. 11/21/17 15:30 11/22/17 14:03 11/22/17 14:07 Objective: Vital Signs Temp Pulse Resp BP Pulse Ox 37.1 C 90 17 112/50 L 94 11/22/17 07:31 11/22/17 08:41 11/22/17 07:31 11/22/17 08:41 11/22/17 07:31 Laboratory Results 11/22/17 04:43 11/19/17 05:14 11/21/17 11/22/17 11/23/17 05:59 05:59 05:59 Intake Total 1100 500 Output Total 750 Balance 350 500 PT 22.8 SEC (12.0-15.0) H 11/22/17 04:43 INR 2.01 (0.83-1.16) H 11/22/17 04:43 ICD10 Worksheet Patient Problems: Problems Problem Status Onset Angina, class III Acute CAD (coronary artery disease) Acute COPD (chronic obstructive pulmonary disease) Acute Dyspnea Acute Hyperlipemia Acute Hypertension Acute JANE (obstructive sleep apnea) Acute Pulmonary arterial hypertension Acute Stented coronary artery Acute
--- NOTE | 2017-11-22 14:11 | PDIAF ---
- Diagnosis Code Status: Full Code - Medication Management Discharge Medications: Medications to Continue on Transfer Ascorbic Acid [Vitamin C 500 mg (*)] 1,000 mg PO DAILY 10/08/17 [Last Taken 05/23] Aspirin [Aspirin 81mg (*)] 81 mg PO DAILY 10/08/17 [Last Taken 11/11/17] Atorvastatin Calcium [Lipitor 40 mg (*)] 40 mg PO DAILY 10/08/17 [Last Taken ] Calcium Carb W/Vit D [Calcium Carb W/Vit D 500/200 (*)] 500 mg PO DAILY [Last Taken 11/16/17] Cholecalciferol Vit D3 [Vitamin D3 2000 units tab (OTC)] 2,000 units PO DAILY [Last Taken 11/13/17] Cyanocobalamin [Vitamin B12 (*)] 1,000 mcg PO DAILY 10/08/17 [Last Taken ] Ferrous Sulfate [Ferrous Sulf 325 MG (*)] 325 mg PO HS 10/08/17 [Last Taken 03/23] Furosemide [Lasix 20 MG (*)] 20 mg PO DAILY 10/08/17 [Last Taken 11/17/17] Hydrocodone/Acetaminophen [[place] 5/325 (*)] 0.5 - 1 tab PO Q6HRS PRN 10/08/17 [ Last Taken 11/04/17] Ibuprofen [Motrin (*)] 200 mg PO QID PRN 10/08/17 [Last Taken 11/11/17] LORazepam [Ativan (*)] 0.5 mg PO DAILY PRN 10/08/17 [Last Taken 11/15/17] Levothyroxine [Synthroid 50 mcg (*)] 50 mcg PO DAILY06 10/08/17 [Last Taken ] MIRTAZAPINE [Remeron 7.5 mg] 0.5 - 1 tab PO HS PRN 10/08/17 [Last Taken 11/16/17 ] Methocarbamol [Robaxin 500 mg (*)] 500 - 1,000 mg PO Q6HRS PRN 10/08/17 [Last Taken 11/11/17] Nebivolol HCl [Bystolic 5 mg (*)] 10 mg PO DAILY 10/08/17 [Last Taken 11/18/17] Dunbar-3 Fatty Acids [Fish Oil 1000 mg (*)] 1,000 mg PO DAILY 10/08/17 [Last Taken 11/11/17] Pantoprazole Sodium [Protonix] 20 mg PO DAILY 10/08/17 [Last Taken 11/18/17] Spironolactone [Aldactone 25 MG (*)] 25 mg PO DAILY 10/08/17 [Last Taken Unknown ] Terazosin HCl [Hytrin 5 MG (*)] 5 mg PO BID 10/08/17 [Last Taken 11/18/17] Tizanidine HCl [Zanaflex] 4 mg PO Q6-8PRN PRN 10/08/17 [Last Taken 11/04/17] traMADol [Ultram 50 mg (*)] 50 - 100 mg PO TID PRN 10/08/17 [Last Taken 11/17/17 ] Coumadin 1MG (*) 1 tab PO 11/22/17 [Last Taken 11/19/17] Discharge Medications: Refer to the Discharge Home Medication list for PRN reason. PICC Care - Routine: N/A - Orders Isolation Type: None Diet Recommendation: no restrictions on diet Diet Texture: Regular Texture Diet Rolle: Not applicable Wound Care Instructions: Please change dressing daily as needed and then every other day once able to, depending on drainage. Activity/Weight Bearing Restrictions: Weight bearing as tolerated. With Assistive device. Additional Instructions: Orthopedics: Weight bearing as tolerated left lower extremity Physical therapy: range of motion and strengthening Abduction pillow while in bed Pain medicine as needed Dressing change daily until dry, then every other day. DVT prophylaxis: warfarin daily for 4 weeks post op, 2.5 mg. SUNITHA hose wear for 2 weeks post op PT/INR blood draws every Thursday and Follow up with Dr. Garza in 2 weeks post op Please call the office with any questions or [phone] - Labs/Radiology PT/INR Date: 11/23/17 (every Thursday and ) - Follow Up Care Current Providers and Referrals: Angy Almaraz MD [Primary Care Provider] - Ravinder Garza MD [Medical Doctor] - follow up in 2 weeks (Follow up in 2 weeks post op)
--- NOTE | 2017-11-22 14:14 | PDIAF ---
- Diagnosis Code Status: Full Code - Medication Management Discharge Medications: Medications to Continue on Transfer Ascorbic Acid [Vitamin C 500 mg (*)] 1,000 mg PO DAILY 10/08/17 [Last Taken 05/23] Aspirin [Aspirin 81mg (*)] 81 mg PO DAILY 10/08/17 [Last Taken 11/11/17] Atorvastatin Calcium [Lipitor 40 mg (*)] 40 mg PO DAILY 10/08/17 [Last Taken ] Calcium Carb W/Vit D [Calcium Carb W/Vit D 500/200 (*)] 500 mg PO DAILY [Last Taken 11/16/17] Cholecalciferol Vit D3 [Vitamin D3 2000 units tab (OTC)] 2,000 units PO DAILY [Last Taken 11/13/17] Cyanocobalamin [Vitamin B12 (*)] 1,000 mcg PO DAILY 10/08/17 [Last Taken ] Ferrous Sulfate [Ferrous Sulf 325 MG (*)] 325 mg PO HS 10/08/17 [Last Taken 03/23] Furosemide [Lasix 20 MG (*)] 20 mg PO DAILY 10/08/17 [Last Taken 11/17/17] Hydrocodone/Acetaminophen [[place] 5/325 (*)] 0.5 - 1 tab PO Q6HRS PRN 10/08/17 [ Last Taken 11/04/17] Ibuprofen [Motrin (*)] 200 mg PO QID PRN 10/08/17 [Last Taken 11/11/17] LORazepam [Ativan (*)] 0.5 mg PO DAILY PRN 10/08/17 [Last Taken 11/15/17] Levothyroxine [Synthroid 50 mcg (*)] 50 mcg PO DAILY06 10/08/17 [Last Taken ] MIRTAZAPINE [Remeron 7.5 mg] 0.5 - 1 tab PO HS PRN 10/08/17 [Last Taken 11/16/17 ] Methocarbamol [Robaxin 500 mg (*)] 500 - 1,000 mg PO Q6HRS PRN 10/08/17 [Last Taken 11/11/17] Nebivolol HCl [Bystolic 5 mg (*)] 10 mg PO DAILY 10/08/17 [Last Taken 11/18/17] Blount-3 Fatty Acids [Fish Oil 1000 mg (*)] 1,000 mg PO DAILY 10/08/17 [Last Taken 11/11/17] Pantoprazole Sodium [Protonix] 20 mg PO DAILY 10/08/17 [Last Taken 11/18/17] Spironolactone [Aldactone 25 MG (*)] 25 mg PO DAILY 10/08/17 [Last Taken Unknown ] Terazosin HCl [Hytrin 5 MG (*)] 5 mg PO BID 10/08/17 [Last Taken 11/18/17] Tizanidine HCl [Zanaflex] 4 mg PO Q6-8PRN PRN 10/08/17 [Last Taken 11/04/17] traMADol [Ultram 50 mg (*)] 50 - 100 mg PO TID PRN 10/08/17 [Last Taken 11/17/17 ] Coumadin 1MG (*) 1 tab PO 11/22/17 [Last Taken 11/19/17] Discharge Medications: Refer to the Discharge Home Medication list for PRN reason. PICC Care - Routine: N/A - Orders Isolation Type: None Diet Recommendation: no restrictions on diet Diet Texture: Regular Texture Diet Rolle: Not applicable Wound Care Instructions: Please change dressing daily as needed and then every other day once able to, depending on drainage. Activity/Weight Bearing Restrictions: Weight bearing as tolerated. With Assistive device. Additional Instructions: Orthopedics: Weight bearing as tolerated left lower extremity Physical therapy: range of motion and strengthening Abduction pillow while in bed Pain medicine as needed Dressing change daily until dry, then every other day. DVT prophylaxis: warfarin daily for 4 weeks post op, 2.5 mg. SUNITHA hose wear for 2 weeks post op PT/INR blood draws every other day. Follow up with Dr. Garza in 2 weeks post op Please call the office with any questions or [phone] - Labs/Radiology PT/INR Date: 11/23/17 (every other day) - Follow Up Care Current Providers and Referrals: Angy Almaraz MD [Primary Care Provider] - Ravinder Garza MD [Medical Doctor] - follow up in 2 weeks (Follow up in 2 weeks post op)
--- NOTE | 2017-11-22 14:47 | ASMTLACE ---
LACE Length of stay for Answers: 4-6 days current admission Acuity / Level of Answers: Yes Care: Did the patient have an inpatient admission? Comorbidities - select Answers: Chronic pulmonary disease all that apply Coronary Artery Disease Opioid dependence / Chronic pain Other Notes: HTN; # of Emergency department Answers: 0 visits in the last 6 months Score: 16 Date Signed: 11/22/2017 02:47 PM Electronically Signed By:Rosalia Cazares RN
--- NOTE | 2017-11-23 09:33 | ASDISCHSUM ---
Discharge Information Plan Status:SNF Medically Cleared to Leave: Discharge Date:11/22/2017 04:17 PM D/C Disposition:Prison Facility ADT D/C Disposition:Prison Facility Projected Discharge Date:11/21/2017 11:00 AM Transportation at D/C: Discharge Delay Reason: Follow-Up Date:11/21/2017 11:00 AM Discharge Slot: Final Diagnosis: Placement Information Referral Type:*Halfway/SNF Referral ID:[id number] Provider Name:[facility] Address 1:[address] Address 2: City:[place] Selection Factors: State:[place] Patient Contact Information Contact Name:BUBBA Relationship:Sister Address:[address] Work Phone: City:[place] Alternate Phone: [facility]/Zip Code:[place] [address] Email: Financial Information Financial Class:Medicare Primary Plan Desc:MEDICARE INPATIENT Primary Plan Number:[id number] Secondary Plan Desc:[employer]/MDR SUPPLEMENT Secondary Plan Number:[id number] Assessment Information LACE LACE Length of stay for Answers: 4-6 days current admission Acuity / Level of Answers: Yes Care: Did the patient have an inpatient admission? Comorbidities - select Answers: Chronic pulmonary disease all that apply Coronary Artery Disease Opioid dependence / Chronic pain Other Notes: HTN; # of Emergency department Answers: 0 visits in the last 6 months Score: 16 Date Signed: 11/22/2017 02:47 PM Electronically Signed By:Rosalia Cazares RN [facility] CM Progress Note CM Note CM Note Notes: Pt is POD #2, s/p TERESA. She normally lives at home alone independantly. PT recommending SNF, pt in agreement. She woul [facility]. Referral sent to [facility]. CM will follow. Date Signed: 11/19/2017 10:22 AM Electronically Signed By:Rocio Simpson RN [facility] CM Progress Note CM Note CM Note Notes: Pt accepted at [facility] and plan remains d/c to [facility] when medically stable. Date Signed: 11/20/2017 01:36 PM Electronically Signed By:JASON Palacios Case Management Discharge Plan Note Case Management Discharge Discharge Order Complete? Answers: Yes Patient to Obtain Answers: Independently Medications Transportation Arranged Answers: Other Notes: [facility] Transport will Pick (Date 11/22/2017 03:30 PM & Time) Faxed Final Orders Answers: Yes Discharge Comments Notes: Patient discharged to [facility]; transport arranged by facility. [facility] to call report. Date Signed: 11/22/2017 02:46 PM Electronically Signed By:Rosalia Cazares RN Intervention Information
== END 2017-11-22 16:17 | DRG 470 ==
LOC: F3N 06:00
PROVIDERS: ADMIT Orthopaedic Surgery Sports Medicine; ATTEND Orthopaedic Surgery Sports Medicine
PROC: 0SRB0JZ Replacement of Left Hip Joint with Synthetic Substitute, Open Approach (ICD-10-PCS; principal; 2017-11-18 07:15)
PROC: 30233N1 Transfusion of Nonautologous Red Blood Cells into Peripheral Vein, Percutaneous Approach (ICD-10-PCS; 2017-11-20)
DX: M16.12 Unilateral primary osteoarthritis, left hip (principal); D62 Acute posthemorrhagic anemia; I10 Essential (primary) hypertension; I25.10 Atherosclerotic heart disease of native coronary artery without angina pectoris; J45.909 Unspecified asthma, uncomplicated; G47.33 Obstructive sleep apnea (adult) (pediatric); M81.0 Age-related osteoporosis without current pathological fracture; E03.9 Hypothyroidism, unspecified; K21.9 Gastro-esophageal reflux disease without esophagitis; E78.5 Hyperlipidemia, unspecified; K44.9 Diaphragmatic hernia without obstruction or gangrene; Z95.5 Presence of coronary angioplasty implant and graft
CPT/HCPCS: 97110-GP; 97116-GP; 97161-GP; 97166-GO; 97530-GO; 97530-GP; 97535-GO; C1713; G8978-GP-CJ; G8979-GP-CI; G8987-GO-CL; G8988-GO-CI; J0171; J0690; J1100; J1170; J2250; J2270; J2405; J2704; J2795; J3010; P9016

== ENCOUNTER → 2018-08-19 | Outpatient (CLI) | payer OTHER, MEDICARE | LOC: FIMAGING 13:29 | PROVIDERS: ATTEND Internal Medicine | DX: Z12.31 Encounter for screening mammogram for malignant neoplasm of breast (principal) ==